=== PATIENT | female | born 2000 ===

== ENCOUNTER 2020-09-06 05:06 | Emergency (ER) | payer OTHER ==
[~2020-09-06] VITALS: Ht 152.4 cm; Wt 40.8 kg
== END 2020-09-06 11:03 | disposition home or self-care (01) ==
LOC: ER 05:06
DX: N39.0 Urinary tract infection, site not specified (principal); R10.32 Left lower quadrant pain

== ENCOUNTER 2025-02-11 23:22 | Emergency (ER) | payer OTHER ==
[~2025-02-11] VITALS: Ht 157.5 cm; Wt 56.7 kg
== END 2025-02-12 04:25 | disposition home or self-care (01) ==
LOC: ER 23:22
DX: S00.33XA Contusion of nose, initial encounter (principal); V49.88XA Car occupant (driver) (passenger) injured in other specified transport accidents, initial encounter; Y93.89 Activity, other specified; Y92.89 Other specified places as the place of occurrence of the external cause; Y99.8 Other external cause status; Z91.013 Allergy to seafood